=== PATIENT | male | born 1970 | race Hispanic/Latino ===

== ENCOUNTER 2018-07-15 19:10 | Observation (INO) | payer OTHER ==
[2018-07-15] MEDS ORDERED: Sodium Chloride 0.9% 1,000 ML IV STA ×2 (19:31→23:10)
--- NOTE | 2018-07-15 20:02 | ED PDOC ---
HPI: Back Time Seen by Provider: 07/15/18 19:26 Chief Complaint (Nursing): Back Pain Chief Complaint (Provider): Back Pain History Per: Patient History/Exam Limitations: no limitations Onset/Duration Of Symptoms: Hrs (1/2 hour prior to arrival) Current Symptoms Are (Timing): Still Present Quality Of Discomfort: Sharp, "Pain" Severity: Severe Associated Symptoms: None Additional Complaint(s): 47 year old male with a history of kidney stones, fatty liver, anxiety and depression presents to the ED for evaluation of right sided back pain, sudden onset 30 minutes prior to arrival, associated with nausea. Patient reports he was bending down to mixing picker tender his dog's leash when symptoms began. He describes pain as severe, sharp and constant, occasionally increasing in intensity. He denies vomiting, fever, chills, dysuria, hematuria and urinary frequency. PMD: in [facility] Past Medical History Reviewed: Historical Data, Nursing Documentation, Vital Signs Vital Signs: Last Vital Signs Temp 98.0 F 07/15/18 19:10 Pulse 80 07/15/18 19:10 Resp 16 07/15/18 19:10 BP 118/64 07/15/18 19:10 Pulse Ox 100 07/15/18 19:10 - Medical History PMH: Anxiety, Depression, Kidney Stones Other PMH: fatty liver - Family History Family History: States: Hypertension - Social History Current smoker - smoking cessation education provided: No Alcohol: None - Home Medications Home Medications: Ambulatory Orders Medication Instructions Recorded Allopurinol [Zyloprim] 300 mg PO DAILY 07/15/18 Escitalopram [Lexapro] 20 mg PO HS 07/15/18 buPROPion XL [Wellbutrin XL] 300 mg PO DAILY 07/15/18 Omeprazole 40 mg PO DAILY 07/16/18 - Allergies Allergies/Adverse Reactions: Allergies Allergy/AdvReac Type Severity Reaction Status Date / Time No Known Allergies Allergy Verified 07/15/18 19:10 Review of Systems ROS Statement: Except As Marked, All Systems Reviewed And Found Negative Constitutional: Negative for: Fever, Chills Gastrointestinal: Positive for: Nausea Genitourinary Male: Negative for: Dysuria, Frequency, Incontinence, Hematuria Musculoskeletal: Positive for: Back Pain Physical Exam - Reviewed Nursing Documentation Reviewed: Yes Vital Signs Reviewed: Yes - Physical Exam Appears: Positive for: Uncomfortable, In Acute Distress Head Exam: Positive for: ATRAUMATIC, NORMAL INSPECTION, NORMOCEPHALIC Skin: Positive for: Normal Color, Warm, Dry Eye Exam: Positive for: EOMI, PERRL Neck: Positive for: Painless ROM, Supple Cardiovascular/Chest: Positive for: Regular Rate, Rhythm. Negative for: Murmur Respiratory: Positive for: Normal Breath Sounds. Negative for: Respiratory Distress Gastrointestinal/Abdominal: Positive for: Soft. Negative for: Tenderness Back: Positive for: Normal Inspection. Negative for: L CVA Tenderness, R CVA Tenderness, Vertebral Tenderness, Muscle Spasm, Other (paraspinal muscle tenderness) Extremity: Positive for: Normal ROM. Negative for: Deformity Lymphatic: Negative for: Adenopathy Neurological/Psych: Positive for: Awake, Alert, Oriented. Negative for: Motor/Sensory Deficits - Laboratory Results Result Diagrams: 07/16/18 05:50 07/16/18 05:50 - ECG O2 Sat by Pulse Oximetry: 100 (RA) Pulse Ox Interpretation: Normal Medical Decision Making Medical Decision Makin:31 Impression: right sided back pain Differential diagnoses include but are not limited to: back sprain and renal colic Initial Plan: --CT Abdomen & Pelvis --CMP --CBC --Flexeril 10 mg PO --Flomax 0.4 mg PO --Toradol 30 mg IV --Tylenol 975 mg PO --NS IV 1,000 mls --Urine cx --UA 21:25 CT FINDINGS: LUNG BASES: The lung bases appear clear. No pleural effusions are seen. LIVER: Unremarkable. GALLBLADDER AND BILE DUCTS: The gallbladder appears within normal limits. No radioopaque gallstones are seen. No biliary ductal dilatation is evident. PANCREAS: Unremarkable. SPLEEN: The spleen is enlarged measuring 16 cm. ADRENAL GLANDS: Unremarkable. KIDNEYS, URETERS, AND BLADDER: The kidneys appear within normal limits. There is no hydronephrosis or hydroureter. No urinary calculi are seen. STOMACH AND BOWEL: Unremarkable appearance of the stomach and bowel. No evidence of bowel obstruc tion. No evidence suggesting enteritis or colitis. APPENDIX: No evidence of acute appendicitis on CT examination. PERITONEUM: No free fluid. No free air. LYMPH NODES: No lymphadenopathy is evident. REPRODUCTIVE: Unremarkable as visualized. VASCULATURE: No evidence of abdominal aortic aneurysm. BONES: No aggressive appearing osseous lesion. No acute osseous pathology evident. IMPRESSION: Splenomegaly. Otherwise unremarkable study. No urinary calculi are seen. 21:45 Patient reports mild improvement of symptoms, but states that pain is still intense when he tries to move. 2300 Pt continues to report severe pain with movement. Will hospitalize for intractable back pain. [facility]. Scribe Attestation: Documented by Tomasa Ospina, acting as a scribe for Bernice Sexton MD. Provider Scribe Attestation: All medical record entries made by the Scribe were at my direction and personally dictated by me. I have reviewed the chart and agree that the record accurately reflects my personal performance of the history, physical exam, medical decision making, and the department course for this patient. I have also personally directed, reviewed, and agree with the discharge instructions and disposition. Disposition - Clinical Impression Clinical Impression: Intractable back pain Counseled Patient/Family Regarding: Studies Performed, Diagnosis - Disposition Disposition Time: 23:00 Condition: FAIR - Pt Status Changed To: Hospital Disposition Of: Observation - POA Present On Arrival: None
[2018-07-15 20:10] LABS: BASO # 0.1 K/uL (0.0-0.2); EOS # 0.1 K/uL (0.0-0.7); EOS % 1.6 % (0.0-4.0); HEMOGLOBIN 13.8 g/dL (12.0-18.0); LYMPH # 1.8 K/uL (1.0-4.3); MEAN CELL VOLUME 93.2 fl (80.0-94.0); MEAN CORPUSCULAR HGB CONC 34.4 g/dL (33.0-37.0); MEAN PLATELET VOLUME 8.9 fl (7.2-11.7); MONO # 0.4 K/uL (0.0-0.8); MONO % 8.6 % (0.0-10.0); NEUT # 2.8 K/uL (1.8-7.0); NEUT % 54.8 % (50.0-75.0); NRBC % 0.1 % (0.0-0.0); RBC 4.3 Mil/uL (4.40-5.90); RED CELL DISTRIBUTION WIDTH 13.1 % (11.5-14.5); WHITE BLOOD COUNT 5.2 K/uL (4.8-10.8)
[2018-07-15 20:13] LABS: URINE BILIRUBIN NEGATIVE (NEGATIVE); URINE BLOOD NEGATIVE (NEGATIVE); URINE CLARITY CLEAR (Clear); URINE COLOR STRAW (YELLOW); URINE GLUCOSE (UA) NEG (NEGATIVE); URINE LEUKOCYTE ESTERASE NEG Leu/uL (Negative); URINE PROTEIN NEGATIVE (NEGATIVE); URINE UROBILINOGEN 0.2-1.0 mg/dL (0.2-1.0)
[2018-07-15 20:21] LABS: ALB/GLOB RATIO 1.4 (1.0-2.1); ALBUMIN 4.6 g/dL (3.5-5.0); ALT/SGPT 127 U/L (21-72); AST/SGOT 89 U/L (17-59); BLOOD UREA NITROGEN 16 mg/dl (9-20); CALCIUM 9.7 mg/dL (8.4-10.2); GFR NON-AFRICAN AMERICAN > 60
[2018-07-15] MEDS ORDERED: Lidocaine 5% Patch TD STA (21:45)
[2018-07-15] MEDS ORDERED: Lidocaine 5% Patch TD ONE (22:08)
[2018-07-15] MEDS ORDERED: Morphine 4 MG/ML VIAL IVP STA (23:09)
[2018-07-15] MEDS ORDERED: Morphine 4 MG/ML VIAL ONE (23:32)
[2018-07-16] MEDS ORDERED: Morphine 4 MG/ML VIAL IVP PRN (01:35)
[2018-07-16] MEDS ORDERED: Oxycodone/Acetaminophen 5/325 mg Tab PO PRN (01:37)
[2018-07-16 06:53] LABS: MEAN CELL VOLUME 92.9 fl (80.0-94.0); MEAN CORPUSCULAR HEMOGLOBIN 32.2 pg (27.0-31.0); MEAN CORPUSCULAR HGB CONC 34.7 g/dL (33.0-37.0); RBC 4.05 Mil/uL (4.40-5.90); RED CELL DISTRIBUTION WIDTH 13.1 % (11.5-14.5)
[2018-07-16 07:14] LABS: LDL CHOLESTEROL 96 mg/dL (0-129)
[2018-07-16 07:18] LABS: ALB/GLOB RATIO 1.3 (1.0-2.1); ALBUMIN 3.8 g/dL (3.5-5.0); ALT/SGPT 108 U/L (21-72); AST/SGOT 62 U/L (17-59); BLOOD UREA NITROGEN 11 mg/dl (9-20); CALCIUM 9.1 mg/dL (8.4-10.2); GFR NON-AFRICAN AMERICAN > 60; HDL CHOLESTEROL 23 MG/DL (30-70)
[2018-07-16] MEDS ORDERED: Influenza Vaccine 60 mcg/0.5 mL SYR (4YR UP) IM ONE (09:00)
[2018-07-16] MEDS ORDERED: Pneumococcal 23-Valent Vaccine IM ONE (09:00)
[2018-07-16] MEDS ORDERED: Influenza Vaccine (5 YR UP)/PF 60 MCG/0.5 ML SYR IM ONE (09:00)
--- NOTE | 2018-07-16 10:38 | RAD ---
Date of service: 07/15/2018 PROCEDURE: Radiographs of the Lumbar Spine. HISTORY: Back Pain. No history of recent/ related trauma provided COMPARISON: No prior. FINDINGS: BONES: Normal alignment. No listhesis. No fracture. DISC SPACES: Unremarkable. OTHER FINDINGS: None. IMPRESSION: Unremarkable radiographs of the lumbar spine.
--- NOTE | 2018-07-16 14:25 | CT ---
Date of service: 07/15/2018 PROCEDURE: CT Abdomen and Pelvis without intravenous contrast HISTORY: COMPARISON: None. TECHNIQUE: CT scan of the abdomen and pelvis was performed without administration of intravenous contrast. Oral contrast was not administered. Coronal and sagittal reformatted images were obtained. Radiation dose: Total exam DLP = 807.64 mGy-cm. This CT exam was performed using one or more of the following dose reduction techniques: Automated exposure control, adjustment of the mA and/or kV according to patient size, and/or use of iterative reconstruction technique. FINDINGS: LOWER THORAX: The visualized lungs are clear. LIVER: Normal in size. No gross lesion or ductal dilatation. GALLBLADDER AND BILE DUCTS: Well distended. No calcified gallstones. No common bile duct dilatation. PANCREAS: Normal in size. No gross lesion or ductal dilatation. SPLEEN: Normal in size. ADRENALS: Normal in size. No discrete nodule. KIDNEYS AND URETERS: Both kidneys are normal in size. No hydronephrosis or nephrolithiasis. VASCULATURE: Normal in caliber. No aortic aneurysm. No aortic atherosclerotic calcification or mural plaque present. BOWEL: Evaluation of the bowel is limited in the absence of oral contrast. The small bowel loops are normal in caliber. There is fecalization of small bowel contents. There is moderate amount of stool in the colon. No bowel dilatation or wall thickening. No bowel obstruction. APPENDIX: Normal appendix. PERITONEUM: No free fluid. No free air. LYMPH NODES: No enlarged lymph nodes. BLADDER: Well distended and normal in appearance. REPRODUCTIVE: The prostate gland is normal in size. BONES: No acute fracture. Within normal limits for the patient's age. OTHER FINDINGS: None. IMPRESSION: No acute abdominal or pelvic abnormality. Constipation and fecalization of small bowel contents. No evidence for bowel obstruction. Mild splenomegaly. A preliminary report was provided by [facility].
--- NOTE | 2018-07-16 15:46 | CP.PCM.HP ---
History of Present Illness - History of Present Illness History of Present Illness: CC: Back pain. 47 y/o M, with PMHx: Kidney stones, fatty liver, Depression, Anxiety. [facility], on 07/15/18 to be evaluated for sudden onset of back pain, R flank, described as aching, sharp, severe intensity 10:10 after he bend at home on DOA prior to arrival to hospital, radiating to legs and after associated to nausea with no relief. Worsening symptoms: Occasional, pain increasing in intensity. Aggravated factor: Moving/exercise. Pt denied: Fever, chills, vomiting, diarrhea, urinary symptoms, CP, syncope, SOB, cough, sick contact, recent travel out of [place]. Abdominal/Pelvis U-S: No acute abnormality. Lumbar X-Ray: Unremarkable. Lumbar Spine MRI: Small bulging L1-L2, mild neural foraminal stenosis. Present on Admission - Present on Admission Any Indicators Present on Admission: No Review of Systems - Constitutional Constitutional: Other (negative) - EENT Eyes: Requires Corrective Lenses Ears: Other (negative) Nose/Mouth/Throat: Other (negative) - Cardiovascular Cardiovascular: Other (negative) - Respiratory Respiratory: Other (negative) - Gastrointestinal Gastrointestinal: Nausea - Genitourinary Genitourinary: Other (negative) - Musculoskeletal Musculoskeletal: Back Pain, Radiating Pain into Limb - Integumentary Integumentary: Other (negative) - Neurological Neurological: Other (negative) - Psychiatric Psychiatric: Depression - Endocrine Endocrine: Other (negative) - Hematologic/Lymphatic Hematologic: Other (negative) Past Patient History - Past Medical History & Family History Past Medical History?: Yes Pertinent Family History: HTN - Past Social History Smoking Status: Light Smoker < 10 Cigarettes Daily Alcohol: None Drugs: Cannabis Home Situation {Lives}: With Family - CARDIAC Hx Cardiac Disorders: No - PULMONARY Hx Respiratory Disorders: No - NEUROLOGICAL Hx Neurological Disorder: No - HEENT Hx HEENT Problems: Yes (Use eyeglasses) - RENAL Hx Chronic Kidney Disease: Yes Hx Kidney Stones: Yes - ENDOCRINE/METABOLIC Hx Endocrine Disorders: No - HEMATOLOGICAL/ONCOLOGICAL Hx Blood Disorders: No - INTEGUMENTARY Hx Dermatological Problems: No - MUSCULOSKELETAL/RHEUMATOLOGICAL Hx Musculoskeletal Disorders: Yes Hx Back Pain: Yes - GASTROINTESTINAL Hx Gastrointestinal Disorders: Yes Hx Fatty Liver Disease: Yes - GENITOURINARY/GYNECOLOGICAL Hx Genitourinary Disorders: No - PSYCHIATRIC Hx Psychophysiologic Disorder: Yes - SURGICAL HISTORY Hx Surgeries: Yes Hx Orthopedic Surgery: Yes (Bunion surgery 4 yrs. ago) Hx Thyroidectomy: (Wears. . eyeglasses) - ANESTHESIA Hx Anesthesia: Yes Hx Anesthesia Reactions: No Hx Malignant Hyperthermia: No Has any member of the family had a problem w/ anesthesia?: No Meds Allergies/Adverse Reactions: Allergies Allergy/AdvReac Type Severity Reaction Status Date / Time No Known Allergies Allergy Verified 07/15/18 19:10 Physical Exam - Constitutional Appears: No Acute Distress - Head Exam Head Exam: NORMAL INSPECTION - Eye Exam Eye Exam: PERRL - ENT Exam ENT Exam: Normal Exam - Neck Exam Neck exam: Positive for: Normal Inspection - Respiratory Exam Respiratory Exam: NORMAL BREATHING PATTERN - Cardiovascular Exam Cardiovascular Exam: REGULAR RHYTHM - GI/Abdominal Exam GI & Abdominal Exam: Normal Bowel Sounds, Soft - Extremities Exam Extremities exam: Positive for: normal inspection - Back Exam Back exam: tenderness - Neurological Exam Neurological exam: Alert, Oriented x3 Additional comments: no focal motor sensory deficit - Psychiatric Exam Psychiatric exam: Depressed - Skin Skin Exam: Warm Results - Vital Signs Recent Vital Signs: Last Vital Signs Temp 97.5 F L 07/16/18 08:21 Pulse 66 07/16/18 08:21 Resp 20 07/16/18 08:21 BP 141/79 07/16/18 08:21 Pulse Ox 97 07/16/18 08:21 reviewed Josefina - Labs Result Diagrams: 07/16/18 05:50 07/16/18 05:50 Labs: Laboratory Results - last 24 hr 07/15/18 07/15/18 07/15/18 19:55 19:55 19:55 WBC 5.2 RBC 4.30 L Hgb 13.8 Hct 40.0 MCV 93.2 MCH 32.0 H MCHC 34.4 RDW 13.1 Plt Count 149 MPV 8.9 Neut % (Auto) 54.8 Lymph % (Auto) 34.0 Glascock % (Auto) 8.6 Eos % (Auto) 1.6 Baso % (Auto) 1.0 Neut # (Auto) 2.8 Lymph # (Auto) 1.8 [place] # (Auto) 0.4 Eos # (Auto) 0.1 Baso # (Auto) 0.1 ESR Sodium 139 Potassium 3.9 Chloride 102 Carbon Dioxide 25 Anion Gap 16 BUN 16 Creatinine 1.0 Est GFR ( Amer) > 60 Est GFR (Non-Af Amer) > 60 Random Glucose 107 Calcium 9.7 Total Bilirubin 0.7 AST 89 H ALT 127 H Alkaline Phosphatase 68 Total Protein 7.8 Albumin 4.6 Globulin 3.2 Albumin/Globulin Ratio 1.4 Triglycerides Cholesterol LDL Cholesterol Direct HDL Cholesterol Thyroxine (T4) TSH 3rd Generation Urine Color Straw Urine Clarity Clear Urine pH 7.0 Ur Specific Corinne < 1.005 Urine Protein Negative Urine Glucose (UA) Neg Urine Ketones Negative Urine Blood Negative Urine Nitrate Negative Urine Bilirubin Negative Urine Urobilinogen 0.2-1.0 Ur Leukocyte Esterase Neg Urine RBC (Auto) 1 Urine Microscopic WBC < 1 07/16/18 07/16/18 05:50 05:50 WBC 4.0 L RBC 4.05 L Hgb 13.0 Hct 37.6 MCV 92.9 MCH 32.2 H MCHC 34.7 RDW 13.1 Plt Count 127 L D MPV Neut % (Auto) Lymph % (Auto) [place]ock % (Auto) Eos % (Auto) Baso % (Auto) Neut # (Auto) Lymph # (Auto) [place]ock # (Auto) Eos # (Auto) Baso # (Auto) ESR 15 Sodium 142 Potassium 3.7 Chloride 106 Carbon Dioxide 27 Anion Gap 13 BUN 11 Creatinine 1.0 Est GFR ( Amer) > 60 Est GFR (Non-Af Amer) > 60 Random Glucose 114 H Calcium 9.1 Total Bilirubin 0.6 AST 62 H D ALT 108 H Alkaline Phosphatase 49 Total Protein 6.7 Albumin 3.8 Globulin 2.9 Albumin/Globulin Ratio 1.3 Triglycerides 198 H Cholesterol 160 LDL Cholesterol Direct 96 HDL Cholesterol 23 L Thyroxine (T4) 6.41 TSH 3rd Generation 4.00 Urine Color Urine Clarity Urine pH Ur Specific Corinne Urine Protein Urine Glucose (UA) Urine Ketones Urine Blood Urine Nitrate Urine Bilirubin Urine Urobilinogen Ur Leukocyte Esterase Urine RBC (Auto) Urine Microscopic WBC reviewed J.P. - EKG Data EKG comments: reviewed J.P. - Imaging and Cardiology CT scan - abdomen Status: Report reviewed by me (J.P.) CT scan - pelvis Status: Report reviewed by me (J.P.) Lumbar Spine MRI Status: Report reviewed by me Lumbar Spine X-Ray Status: Report reviewed by me Assessment & Plan (1) Intractable back pain Status: Acute Priority: High (2) Depression Status: Chronic Priority: Medium - Assessment and Plan (Free Text) Plan: Percocet, Protonix, Lexapro, Pain Management and Neurology consult - Date & Time Date: 07/16/18
[2018-07-16 16:18] VITALS: BP 132/79; PULSE 85; RESP 18; TEMP 97.8
--- NOTE | 2018-07-16 18:56 | MRI ---
Date of service: 07/16/2018 PROCEDURE: MR LUMBAR SPINE WITHOUT CONTRAST HISTORY: severe lumbar pain COMPARISON: Comparison is made to the previous CT of the abdomen and pelvis dated 07/15/2018 TECHNIQUE: Multiecho multiplanar sequences were performed through the lumbar spine without the use of intravenous contrast. FINDINGS: Normal lumbar lordosis. Vertebral body heights are preserved. Marrow signal unremarkable. Conus medullaris unremarkable at the level of Paraspinal soft tissues are unremarkable. T12-L1: There is right paracentral disc protrusion measures 5 millimeter which resulting in [id number] right lateral recess narrowing and mild right neural foraminal stenosis. L1-2: There is small 3 millimeter central and right paracentral bulging disc which resulting in mild right lateral recess narrowing. Mild degenerative disc changes are noted. L2-3: No disc herniation, spinal canal stenosis or neural foraminal narrowing. L3-4: No disc herniation, spinal canal stenosis or neural foraminal narrowing. L4-5: There is a small broad-based bulging disc associated with mild posterior ligament and facet joint hypertrophy which resulting in mild thecal sac narrowing. No evidence of significant neural foraminal stenosis. Mild degenerative disc changes are noted. L5-S1: No disc herniation, spinal canal stenosis or neural foraminal narrowing. OTHER FINDINGS: None. IMPRESSION: Moderate size right paracentral disc protrusion at T12-L1 resulting in [id number] right lateral recess and mild right neural foraminal stenosis. Small bulging disc at L1-L2 resulting in mild right lateral recess narrowing. Mild degenerative disc changes more prominent at L4-L5.
--- NOTE | 2018-07-17 10:38 | CP.PCM.DIS ---
Provider - Provider Date of Admission: 07/15/18 23:14 Attending physician: Renny Cruz MD Consults: 07/16/18 08:00 Anesthesiology Consult Routine Comment: Pain Apn Provider: Tucker Watson Consulting Physician: Tucker Watson Reason for Consult: Pain Management 07/16/18 09:00 Social Work Referral Routine Comment: Patient smokes pot Physician Instructions: Reason For Exam: Patient smokes pot 07/16/18 10:17 Neuro Surgery Consult Routine Comment: Consulting Provider: Lukas Tran Consulting Physician: Lukas Tran Reason for Consult: Intractable back pain Time Spent in preparation of Discharge (in minutes): 35 Diagnosis - Discharge Diagnosis (1) Intractable back pain Status: Acute Priority: High Comment: 2nd to disc protrusion T12, L1, R Neural foraminal stenosis, disc bulging L1 L2, degenerative disc changes L4 L5 (2) Depression Status: Chronic Priority: Medium Hospital Course - Lab Results Lab Results: Micro Results 07/15/18 19:55 Urine Random Urine Culture - Final No Growth (<1,000 CFU/ML) Most Recent Lab Values WBC 4.0 K/uL (4.8-10.8) L 07/16/18 05:50 RBC 4.05 Mil/uL (4.40-5.90) L 07/16/18 05:50 Hgb 13.0 g/dL (12.0-18.0) 07/16/18 05:50 Hct 37.6 % (35.0-51.0) 07/16/18 05:50 MCV 92.9 fl (80.0-94.0) 07/16/18 05:50 MCH 32.2 pg (27.0-31.0) H 07/16/18 05:50 MCHC 34.7 g/dL (33.0-37.0) 07/16/18 05:50 RDW 13.1 % (11.5-14.5) 07/16/18 05:50 Plt Count 127 K/uL (130-400) L D 07/16/18 05:50 MPV 8.9 fl (7.2-11.7) 07/15/18 19:55 Neut % (Auto) 54.8 % (50.0-75.0) 07/15/18 19:55 Lymph % (Auto) 34.0 % (20.0-40.0) 07/15/18 19:55 Stokes % (Auto) 8.6 % (0.0-10.0) 07/15/18 19:55 Eos % (Auto) 1.6 % (0.0-4.0) 07/15/18 19:55 Baso % (Auto) 1.0 % (0.0-2.0) 07/15/18 19:55 Neut # (Auto) 2.8 K/uL (1.8-7.0) 07/15/18 19:55 Lymph # (Auto) 1.8 K/uL (1.0-4.3) 07/15/18 19:55 Stokes # (Auto) 0.4 K/uL (0.0-0.8) 07/15/18 19:55 Eos # (Auto) 0.1 K/uL (0.0-0.7) 07/15/18 19:55 Baso # (Auto) 0.1 K/uL (0.0-0.2) 07/15/18 19:55 ESR 15 mm/hr (0-15) 07/16/18 05:50 Sodium 142 mmol/l (132-148) 07/16/18 05:50 Potassium 3.7 MMOL/L (3.6-5.0) 07/16/18 05:50 Chloride 106 mmol/L (98-107) 07/16/18 05:50 Carbon Dioxide 27 mmol/L (22-30) 07/16/18 05:50 Anion Gap 13 (10-20) 07/16/18 05:50 BUN 11 mg/dl (9-20) 07/16/18 05:50 Creatinine 1.0 mg/dl (0.8-1.5) 07/16/18 05:50 Est GFR ( Amer) > 60 07/16/18 05:50 Est GFR (Non-Af Amer) > 60 07/16/18 05:50 Random Glucose 114 mg/dL (75-110) H 07/16/18 05:50 Calcium 9.1 mg/dL (8.4-10.2) 07/16/18 05:50 Total Bilirubin 0.6 mg/dl (0.2-1.3) 07/16/18 05:50 AST 62 U/L (17-59) H D 07/16/18 05:50 ALT 108 U/L (21-72) H 07/16/18 05:50 Alkaline Phosphatase 49 U/L (38-126) 07/16/18 05:50 Total Protein 6.7 G/DL (6.3-8.2) 07/16/18 05:50 Albumin 3.8 g/dL (3.5-5.0) 07/16/18 05:50 Globulin 2.9 gm/dL (2.2-3.9) 07/16/18 05:50 Albumin/Globulin Ratio 1.3 (1.0-2.1) 07/16/18 05:50 Triglycerides 198 mg/DL (0-149) H 07/16/18 05:50 Cholesterol 160 mg/dL (0-199) 07/16/18 05:50 LDL Cholesterol Direct 96 mg/dL (0-129) 07/16/18 05:50 HDL Cholesterol 23 MG/DL (30-70) L 07/16/18 05:50 Thyroxine (T4) 6.41 ug/dl (5.5-11.0) 07/16/18 05:50 TSH 3rd Generation 4.00 mIU/ML (0.46-4.68) 07/16/18 05:50 Urine Color Straw (YELLOW) 07/15/18 19:55 Urine Clarity Clear (Clear) 07/15/18 19:55 Urine pH 7.0 (5.0-8.0) 07/15/18 19:55 Ur Specific [place] < 1.005 (1.003-1.030) 07/15/18 19:55 Urine Protein Negative mg/dL (NEGATIVE) 07/15/18 19:55 Urine Glucose (UA) Neg mg/dL (NEGATIVE) 07/15/18 19:55 Urine Ketones Negative mg/dL (NEGATIVE) 07/15/18 19:55 Urine Blood Negative (NEGATIVE) 07/15/18 19:55 Urine Nitrate Negative (NEGATIVE) 07/15/18 19:55 Urine Bilirubin Negative (NEGATIVE) 07/15/18 19:55 Urine Urobilinogen 0.2-1.0 mg/dL (0.2-1.0) 07/15/18 19:55 Ur Leukocyte Esterase Neg Seema/uL (Negative) 07/15/18 19:55 Urine RBC (Auto) 1 /hpf (0-3) 07/15/18 19:55 Urine Microscopic WBC < 1 /hpf (0-5) 07/15/18 19:55 - Hospital Course Hospital Course: 47 years old male, ER [facility] CC: Low back pain Right-sided back pain, onset 30 minutes prior to arrival associated with nausea. Patient reported he was bending down to pickle solution maker his dog leash when symptoms began Patient denies vomiting fever, chills, dysuria, hematuria, urinary frequency PMX: Kidney stones, fatty liver, anxiety, depression Abdominal and pelvis CT without p.o. or IV contrast: No acute abdominal or pelvic abnormality, constipation fecalization of small bowel contents. No evidence of bowel obstruction, mild Splenomegaly MRI spinal canal lumbar without contrast: Moderate sized right paracentral disc protrusion at T12-L1 resulting in mild to moderate right lateral recess and mild right neural foraminal stenosis. Small bulging disc at L1-L2 resulting in mild right lateral recess narrowing. Mild degenerative disc changes more prominent L4-L5. Patient was treated with Percocet, Protonix, Lexapro Patient was seen by Pain Management and Neurosurgical consultants and was cleared for discharge Patient was discharged in improved and stable condition, see MAR inst/med, f/u PMD one week - Date & Time of H&P Date of H&P: 07/16/18 Discharge Exam - Head Exam Head Exam: ATRAUMATIC, NORMAL INSPECTION, NORMOCEPHALIC - Eye Exam Eye Exam: PERRL - ENT Exam ENT Exam: Normal Oropharynx - Neck Exam Neck exam: Normal Inspection - Respiratory Exam Respiratory Exam: Clear to PA & Lateral - Cardiovascular Exam Cardiovascular Exam: REGULAR RHYTHM - GI/Abdominal Exam GI & Abdominal Exam: Normal Bowel Sounds, Soft - Extremities Exam Extremities exam: normal inspection - Back Exam Back exam: tenderness - Neurological Exam Neurological exam: Alert, CN II-XII Intact, Oriented x3 Additional comments: no focal motor/sensory deficit - Psychiatric Exam Psychiatric exam: Anxious - Skin Skin Exam: Warm Discharge Plan - Follow Up Plan Condition: FAIR Disposition: HOME/ ROUTINE Patient education suggested?: Yes Instructions: Depression (DC), Back Pain (GEN) Additional Instructions: F/U with PMD in one week.
[2018-07-19 17:01] VITALS: O2SAT 100
== END 2018-07-16 20:20 | disposition home or self-care (01) ==
LOC: H.ER 19:10 → H.ERHOLD 23:14 → H.MEDSURG1 07-16 00:43
PROVIDERS: ADMIT Internal Medicine Pulmonary Disease; ATTEND Internal Medicine Pulmonary Disease
DX: M51.25 Other intervertebral disc displacement, thoracolumbar region (principal); K76.0 Fatty (change of) liver, not elsewhere classified; F32.9 Major depressive disorder, single episode, unspecified; F41.9 Anxiety disorder, unspecified; F17.210 Nicotine dependence, cigarettes, uncomplicated; N18.9 Chronic kidney disease, unspecified; I12.9 Hypertensive chronic kidney disease with stage 1 through stage 4 chronic kidney disease, or unspecified chronic kidney disease; M48.061 Spinal stenosis, lumbar region without neurogenic claudication; M51.36 Other intervertebral disc degeneration, lumbar region; Z23 Encounter for immunization
CPT/HCPCS: 36415; 72100; 72148; 74176; 80053; 80061; 81003; 84436; 84443; 85025; 85027; 85651; 87086; 90471; 90674; 90732; 96374; 96375; 99282; C9113; G0008; G0378; J1885; J2270; J7030